=== PATIENT | male | born 1970 | race Caucasian/White ===

== ENCOUNTER 2017-06-13 15:42 | Emergency (ER) | payer OTHER ==
[2017-06-13 16:03] VITALS: BP 114/78; RESP 17; TEMP 98
[2017-06-13] MEDS ORDERED: LEVOFLOXACIN 750 MG TAB PO STA (16:26)
[2017-06-13] MEDS ORDERED: methylPREDNISolone SOD SUCCI 125 MG/2 ML VIAL IM ONE (16:26)
--- NOTE | 2017-06-13 16:32 | ED ---
Skin/Abscess/FB HPI - General Chief complaint: Skin/Abscess/Foreign Body Stated complaint: bee sting/swelling in ankle Time Seen by Provider: 06/13/17 15:58 Source: patient, RN notes reviewed, old records reviewed Mode of arrival: ambulatory Limitations: no limitations - History of Present Illness Initial comments: This is a 47-year-old male presenting to the emergency Department chief complaint of a hornet sting over his right ankle. Patient reports that he is leaving the hospital after getting a CAT scan of the sinuses. He reports that in particular he got stung. He states he went into his car and took one Benadryl. He reports that he's had significant pain and swelling over the ankle. He reports the he discussed this with his and she her chin to contact emergency department. Patient reports that he was recently on steroids but had abnormal reaction to the anxious. Patient reports that he has no numbness or tingling in his toes. Denies any decreased range of motion of the foot or ankle. Patient denies any shortness of breath or swelling of the face or lips. Patient reports that he does have chronic sinusitis and he is supposed to start taking Levaquin. He reports is not able to get to the pharmacy in order to be able to take his medication, it is closed at this hour. Patient denies any recent fever, chills, shortness of breath, chest pain, back pain, abdominal pain, nausea vomiting, numbness or tingling, dysuria or hematuria, constipation or diarrhea, headaches or visual changes, or any other current symptoms - Related Data Previous Rx's Medication Instructions Recorded Hydrocortisone Cream 1 applic TOPICAL QID #1 tube 06/13/17 [Hydrocortisone 1% Cream] Allergies Allergy/AdvReac Type Severity Reaction Status Date / Time codeine Allergy Unknown Verified 06/13/17 15:58 Sulfa (Sulfonamide Allergy Unknown Verified 06/13/17 15:58 Antibiotics) Review of Systems ROS Statement: Those systems with pertinent positive or pertinent negative responses have been documented in the HPI. ROS Other: All systems not noted in ROS Statement are negative. Past Medical History Past Medical History: No Reported History History of Any Multi-Drug Resistant Organisms: None Reported Additional Past Surgical History / Comment(s): club foot Past Psychological History: No Psychological Hx Reported Smoking Status: Never smoker Past Alcohol Use History: Occasional Past Drug Use History: None Reported General Exam - General Exam Comments Initial Comments: This is a 47-year-old male. No acute distress. Limitations: no limitations General appearance: alert, in no apparent distress Head exam: Present: atraumatic, normocephalic, normal inspection Eye exam: Present: normal appearance, PERRL, EOMI. Absent: scleral icterus, conjunctival injection, periorbital swelling ENT exam: Present: normal exam, mucous membranes moist Neck exam: Present: normal inspection. Absent: tenderness, meningismus, lymphadenopathy Respiratory exam: Present: normal lung sounds bilaterally. Absent: respiratory distress, wheezes, rales, rhonchi, stridor Cardiovascular Exam: Present: regular rate, normal rhythm, normal heart sounds. Absent: systolic murmur, diastolic murmur, rubs, gallop, clicks GI/Abdominal exam: Present: soft, normal bowel sounds. Absent: distended, tenderness, guarding, rebound, rigid Extremities exam: Present: normal inspection, full ROM, normal capillary refill. Absent: tenderness, pedal edema, joint swelling, calf tenderness Back exam: Present: normal inspection Neurological exam: Present: alert, oriented X3, CN II-XII intact Psychiatric exam: Present: normal affect, normal mood Skin exam: Present: warm, dry, intact, normal color. Absent: rash Course Vital Signs 06/13/17 15:58 Temperature 98.0 F Pulse Rate 91 Respiratory 17 Rate Blood Pressure 114/78 O2 Sat by Pulse 98 Oximetry Medical Decision Making - Medical Decision Making This is a 47-year-old male presenting to the emergency Department chief complaint of a hornet sting over his right ankle. Patient reports that he is leaving the hospital after getting a CAT scan of the sinuses. He reports that in particular he got stung. He states he went into his car and took one Benadryl. He reports that he's had significant pain and swelling over the ankle. He reports the he discussed this with his and she her chin to contact emergency department. Patient reports that he was recently on steroids but had abnormal reaction to the anxious. Patient reports that he has no numbness or tingling in his toes. Denies any decreased range of motion of the foot or ankle. Patient denies any shortness of breath or swelling of the face or lips. Patient reports that he does have chronic sinusitis and he is supposed to start taking Levaquin. He reports is not able to get to the pharmacy in order to be able to take his medication, it is closed at this hour. Patient does have some mild to moderate swelling over the lateral aspect of the ankle. Patient has full range of motion the toes. Normal sensation and good capillary refill. Patient was given IM Solu-Medrol. Discussed that he needs to take Benadryl when he goes home. Patient was also given an ice pack over the area. Discussed that I can give him 1 dose of his antibiotic today supposed to start tomorrow for sinusitis as he is not able to get to the pharmacy. Patient agrees to treatment plan will comply. Return parameters were discussed. Disposition Clinical Impression: Bee sting reaction, Sinusitis Disposition: HOME SELF-CARE Condition: Good Instructions: Insect Bite or Sting (ED) Additional Instructions: Patient advised to put ice over the area as much as possible. He needs to take Benadryl at home. Patient advised to take Benadryl every 4 hours. Apply a steroid cream over the top of the area as well. Return to the emergency department if any alarming signs or symptoms occur. Prescriptions: Hydrocortisone Cream [Hydrocortisone 1% Cream] 1 applic TOPICAL QID #1 tube Referrals: Gilbert Berry MD [Primary Care Provider] - 1-2 days Time of Disposition: 16:31
[2017-06-13 16:51] VITALS: PULSE 87
== END 2017-06-13 16:50 | disposition home or self-care (01) ==
LOC: EC 15:42
DX: T63.441A Toxic effect of venom of bees, accidental (unintentional), initial encounter (principal); J32.9 Chronic sinusitis, unspecified; Z88.2 Allergy status to sulfonamides; Z88.5 Allergy status to narcotic agent; Y92.239 Unspecified place in hospital as the place of occurrence of the external cause
CPT/HCPCS: 99283; 96372; J2930; 70486

== ENCOUNTER → 2017-06-13 | Outpatient (CLI) | payer OTHER ==
--- NOTE | 2017-06-13 16:01 | CT ---
EXAMINATION TYPE: CT sinus wo con DATE OF EXAM: 06/13/2017 COMPARISON: NONE HISTORY: Sinus pressure and congestion x years. CT DLP: 490.00 mGycm. Automated Exposure Control for Dose Reduction was Utilized. TECHNIQUE: CT scan of the sinuses is performed without contrast, axial images are obtained, coronal r eformatted images are also reviewed. FINDINGS: A small amount mucosal thickening is seen within the frontal sinus. Scant mucosal thickeni ng is seen along the medial wall of the left maxillary sinus. There is no evidence of mucoperiosteal thickening to indicate chronic sinusitis. Septi are and swelling noted within the inferior maxillary sinuses. There is a left middle and inferior nasal turbinate mucosal hypertrophy. No nasal septal dev iation. The ostiomeatal complexes are patent. No Deidre cells are present. No norma bullosa. Frontal recesses are also present. Lamina Propecia are intact. Multiple dental fillings creates spray artifa ct and partially obscured visualization of the oral pharynx. The examination is not optimized for chela luation the brain. Visualized portion of mastoid air cells show no abnormal opacification. The globes are intact bilate rally. IMPRESSION: 1. Scant mucosal thickening along the medial wall of the left maxillary sinus without mucoperiosteal thickening to radiographically indicate chronic sinusitis. 2. Patency of the ostiomeatal complexes bilaterally. No Deidre cells or norma bullosa. 3. Left middle and inferior nasal turbinate hypertrophy. No septal deviation. 4. Scant mild mucosal thickening of the frontal sinus.
== END | disposition home or self-care (01) ==
LOC: RADCTMAIN 14:58
PROVIDERS: ATTEND Otolaryngology Otolaryngic Allergy
DX: J34.89 Other specified disorders of nose and nasal sinuses (principal); J34.3 Hypertrophy of nasal turbinates
CPT/HCPCS: 70486

== ENCOUNTER → 2018-05-01 | Outpatient (CLI) | payer OTHER ==
--- NOTE | 2018-05-02 04:49 | MR ---
EXAMINATION TYPE: MR cspine/lspine wo con DATE OF EXAM: 05/01/2018 COMPARISON: NONE HISTORY: TECHNIQUE: Multiplanar, multisequence imaging of the lumbar and cervical spine is performed without I V contrast. FINDINGS: . Cervical spine The vertebra have normal alignment. Disc spaces are fairly normal. Cervical spinal cord has normal si gnal pattern. There is no evidence of edema. Brainstem appears intact. I see no bony destructive proc ess. There is no cervical paraspinal mass. Posterior elements appear intact. There is small posterior disc herniation at C5-6 without significant impingement on the spinal canal. IMPRESSION: Small posterior disc herniation at C5-6. Otherwise negative exam. Lumbar spine. The lumbar vertebra have normal alignment. There is no compression fracture. There is mild degenerati ve disc changes throughout the lumbar spine. There are small posterior disc bulging at L1-2 L4-5 and L5-S1 without compromise of the spinal canal. Lumbar nerve roots appear normal. The neuroforamina are fairly well-maintained. There is no bony destructive process. There is no lumbar paraspinal mass. Th ere is no lumbar spinal stenosis. IMPRESSION: Mild multilevel spondylosis. Small posterior disc herniations without impingement on the neural eleme nts. No spinal stenosis.
== END | disposition home or self-care (01) ==
LOC: RADMRIMAIN 19:42
PROVIDERS: ATTEND Psychiatry & Neurology Neurology
DX: M51.16 Intervertebral disc disorders with radiculopathy, lumbar region (principal); M47.26 Other spondylosis with radiculopathy, lumbar region; M50.222 Other cervical disc displacement at C5-C6 level; R29.2 Abnormal reflex; R29.818 Other symptoms and signs involving the nervous system; R20.2 Paresthesia of skin; Z82.0 Family history of epilepsy and other diseases of the nervous system
CPT/HCPCS: 72141; 72148

== ENCOUNTER → 2018-05-04 | Outpatient (CLI) | payer OTHER ==
--- NOTE | 2018-05-04 23:07 | MR ---
EXAMINATION TYPE: MR thoracic spine wo/w con DATE OF EXAM: 05/04/2018 COMPARISON: NONE HISTORY: Tspine pain CONTRAST: Standard multiplanar, multisequence MRI departmental protocol utilizing 7.5 mL intravenous Gadavist g adolinium contrast. FINDINGS: Thoracic vertebra have normal alignment. There is mild narrowing of thoracic disc spaces. T here is very subtle loss of height of multiple thoracic vertebra. There is no thoracic paraspinal mas s. There is no thoracic spinal stenosis. Thoracic spinal cord has normal signal pattern without evide nce of edema. There is no pathologic enhancement. I see no focal bone destruction. There is mild spurring of the endplates. There is mild multilevel spur formation without significant encroachment on the spinal canal. There is small posterior disc herniation at T5-6 without significan t impingement on the spinal cord. This is slightly towards the left side. IMPRESSION: Mild spondylotic changes. Small posterior disc bulging without significant encroachment on the spinal canal. Subtle loss of height could relate to osteomalacia.
== END | disposition home or self-care (01) ==
LOC: RADMRIMAIN 20:42
PROVIDERS: ATTEND Psychiatry & Neurology Neurology
DX: M51.24 Other intervertebral disc displacement, thoracic region (principal); M47.24 Other spondylosis with radiculopathy, thoracic region; M54.17 Radiculopathy, lumbosacral region
CPT/HCPCS: 72157; A9581

== ENCOUNTER → 2018-05-06 | Outpatient (CLI) | payer OTHER ==
--- NOTE | 2018-05-06 23:10 | MR ---
EXAMINATION TYPE: MR brain wo/w con DATE OF EXAM: 05/06/2018 COMPARISON: NONE HISTORY: Neurological deficit present (R29.818). Family history of ALS with hyperreflexia TECHNIQUE: Multiplanar, multisequence imaging of the brain and brainstem is performed without IV cont rast. FINDINGS: Diffusion weighted images demonstrate no evidence of a recent infarct or other diffusion abnormality. There is no extraaxial fluid collection or significant white matter signal abnormality. The ventricu lar system and cisternal spaces are normal in size and appearance. The brain volume is age appropria te. Midline structures demonstrate normal morphology. The craniocervical junction appears within normal limits. Normal vascular flow voids are present. The visualized sinuses are clear and the globes are i ntact. IMPRESSION: No suspicious findings identified.
== END | disposition home or self-care (01) ==
LOC: RADMRIMAIN 13:13
PROVIDERS: ATTEND Psychiatry & Neurology Neurology
DX: R29.818 Other symptoms and signs involving the nervous system (principal)
CPT/HCPCS: 70553; A9581

== ENCOUNTER 2018-05-30 06:53 | Emergency (ER) | payer OTHER ==
[2018-05-30] MEDS ORDERED: SODIUM CHLORIDE 0.9% 1,000 ML IV STA (07:25)
[2018-05-30] MEDS ORDERED: KETOROLAC 30 MG/ML 1 ML VIAL IVP STA (07:26)
--- NOTE | 2018-05-30 07:29 | ED ---
General Adult HPI - General Chief complaint: Extremity Injury, Lower Stated complaint: leg pain Source: patient Mode of arrival: ambulatory Limitations: no limitations - History of Present Illness Initial comments: Dictation was produced using [employer] dictation software. please excuse any grammatical, word or spelling errors. Chief Complaint: 47-year-old male past medical history of left lower extremity clubfoot presents with right gluteal pain with radiation to the right lateral foot. History of Present Illness: Patient is a 47-year-old male with past medical history of left lower extremity clubfoot presents with right gluteal pain with radiation to the right lateral foot. 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 He will go this morning with pain over his right gluteus area. He reports that the pain radiates down to his right lateral foot. Patient denies any back pain. Patient has a history of left- sided clubfoot. He reports that he's been casted and has normal atrophy of the left lower extremity muscles. Patient states he recently had MRI of his lower back, does not know results. Patient denies any weakness. Pain is exacerbated with flexion of the hip The ROS documented in this emergency department record has been reviewed and confirmed by me. Those systems with pertinent positive or negative responses have been documented in the HPI. All other systems are other negative and/or noncontributory. - Related Data Previous Rx's Medication Instructions Recorded Baclofen 10 mg PO TID PRN #20 tab 05/30/18 Dexamethasone 12 mg PO ONCE #3 tablet 05/30/18 Allergies Allergy/AdvReac Type Severity Reaction Status Date / Time codeine Allergy Unknown Verified 06/13/17 15:58 latex Allergy Rash/Hives Verified 05/30/18 07:06 Sulfa (Sulfonamide Allergy Unknown Verified 06/13/17 15:58 Antibiotics) Review of Systems ROS Statement: Those systems with pertinent positive or pertinent negative responses have been documented in the HPI. ROS Other: All systems not noted in ROS Statement are negative. Past Medical History Past Medical History: No Reported History History of Any Multi-Drug Resistant Organisms: None Reported Additional Past Surgical History / Comment(s): club foot Past Psychological History: No Psychological Hx Reported Smoking Status: Never smoker Past Alcohol Use History: Occasional Past Drug Use History: None Reported General Exam - General Exam Comments Initial Comments: PHYSICAL EXAM: General Impression: Alert and oriented x3, not in acute distress HEENT: Normocephalic atraumatic, extra-ocular movements intact, pupils equal and reactive to light bilaterally, mucous membranes moist. Cardiovascular: Heart regular rate and rhythm, S1&S2 audible, no murmurs, rubs or gallops Chest: Lungs clear to auscultation bilaterally, no rhonchi, no wheeze, no rales Abdomen: Bowel sounds present, abdomen soft, non-tender, non-distended, no organomegaly Musculoskeletal: Pulses present and equal in all extremities, no peripheral edema, tenderness to palpation over the right piriformis. Motor: Power 5/5 bilaterally, no focal deficits noted Neurological: CN II-XII grossly intact, no focal motor or sensory deficits noted Skin: Intact with no visualized rashes Psych: Normal affect and mood Limitations: no limitations Course Vital Signs 05/30/18 07:02 Temperature 97.7 F Pulse Rate 77 Respiratory 18 Rate Blood Pressure 124/79 O2 Sat by Pulse 97 Oximetry Medical Decision Making - Medical Decision Making ED course: 47-year-old male presents with clinical presentation consistent with sciatica. Vital signs upon arrival are within acceptable limits. Please reproducible with palpation over the right piriformis muscle. Patient given intravenous fluids, analgesics. Metabolic panel was obtained to look for electrolyte abnormalities. Metabolic panel is within normal limits. Patient reevaluated and states that he has mild improvement of symptoms however still persistent. Coca presentation is consistent with sciatica stemming from the piriformis muscle. Patient denies any back pain to suggest sciatica originating from the lower spine. Patient was mildly concerned that his symptoms were from blood clot however symptoms are of the lateral lower leg. Patient denies any Pain, popliteal pain or pain to the medial thigh over the deep venous system. Consultation on what symptoms are suggestive of deep venous thrombosis. Patient educated on early mobility and flexibility are most helpful in improving his symptoms. Patient is told that he is high risk for right lower extremity and hip issues given that his history of clubfoot and weak left lower extremity. Still to follow-up with his mandrel puller for Hospital reevaluation of she left. Patient given 1 dose of corticosteroids. He is given prescription for baclofen when necessary pain. Patient advised to follow- up with primary care physician. He is understandable and agreeable to this plan. - Lab Data Result diagrams: 05/30/18 08:05 Lab Results 05/30/18 Range/Units 08:05 Sodium 139 (137-145) mmol/L Potassium 4.7 (3.5-5.1) mmol/L Chloride 105 (98-107) mmol/L Carbon Dioxide 27 (22-30) mmol/L Anion Gap 7 mmol/L BUN 22 H (9-20) mg/dL Creatinine 1.04 (0.66-1.25) mg/dL Est GFR (CKD-EPI)AfAm >90 (>60 ml/min/1.73 sqM) Est GFR (CKD-EPI)NonAf 87 (>60 ml/min/1.73 sqM) Glucose 105 H (74-99) mg/dL Calcium 9.3 (8.4-10.2) mg/dL Disposition Clinical Impression: Sciatica Disposition: HOME SELF-CARE Condition: Fair Instructions: Sciatica (ED) Prescriptions: Baclofen 10 mg PO TID PRN #20 tab PRN Reason: Pain Dexamethasone 12 mg PO ONCE #3 tablet Is patient prescribed a controlled substance at d/c from ED?: No Referrals: Gilbert Berry MD [Primary Care Provider] - 1-2 days Time of Disposition: 09:14
[2018-05-30 08:36] LABS: Anion Gap 7 mmol/L; Blood Urea Nitrogen 22 mg/dL (9-20); Calcium 9.3 mg/dL (8.4-10.2); Carbon Dioxide 27 mmol/L (22-30); Chloride 105 mmol/L (98-107); Glucose 105 mg/dL (74-99); Potassium 4.7 mmol/L (3.5-5.1); Sodium 139 mmol/L (137-145)
[2018-05-30] MEDS ORDERED: DEXAMETHASONE SOD PHOSPHATE 10 MG/ML 1 ML VIAL IV STA (08:51)
[2018-05-30] MEDS ORDERED: BACLOFEN 10 MG TAB PO STA (08:52)
[2018-05-30 09:59] VITALS: BP 128/70; PULSE 78; RESP 16; TEMP 97.8
== END 2018-05-30 09:58 | disposition home or self-care (01) ==
LOC: EC 06:53
DX: M54.30 Sciatica, unspecified side (principal); Z88.5 Allergy status to narcotic agent; Z88.2 Allergy status to sulfonamides; Z91.040 Latex allergy status
CPT/HCPCS: 36415; 80048; 99283; 96374; 96375; 96361; J1100; J1885

== ENCOUNTER → 2018-12-04 | Outpatient (CLI) | payer OTHER ==
--- NOTE | 2018-12-04 15:16 | XR ---
EXAMINATION TYPE: XR chest 2V DATE OF EXAM: 12/04/2018 COMPARISON: Prior chest x-ray 12/28/2008 HISTORY: Cough TECHNIQUE: Frontal and lateral views of the chest are obtained. FINDINGS: Azygos lobe is noted incidentally. There is no focal air space opacity, pleural effusion, o r pneumothorax seen. The cardiac silhouette size is within normal limits. The aorta is dense. There is a spinal curvature. Postop change noted to the distal left clavicle. Substernal bandlike areas of increased attenuation likely represents scar, are stable. The osseous structures are intact. IMPRESSION: No acute cardiopulmonary process.
== END | disposition home or self-care (01) ==
LOC: RADXRMAIN 09:57
PROVIDERS: ATTEND Nurse Practitioner Family
DX: R07.89 Other chest pain (principal); R05 Cough
CPT/HCPCS: 71046

== ENCOUNTER → 2019-06-21 | Outpatient (CLI) | payer OTHER ==
--- NOTE | 2019-06-21 15:15 | XR ---
EXAMINATION TYPE: XR chest 2V DATE OF EXAM: 06/21/2019 COMPARISON: 12/04/2018 HISTORY: Nodule on the sternum for 2 years. TECHNIQUE: Frontal and lateral views of the chest are obtained. FINDINGS: Redemonstration of azygos lobe. There is no focal air space opacity, pleural effusion, or pneumothorax seen. The cardiac silhouette size is within normal limits. Postoperative changes are se en in the distal left clavicle. Degenerative changes are seen throughout the thoracic spine. Evaluati on of the sternum is limited on chest x-ray, but no gross abnormality is identified. IMPRESSION: No acute intrathoracic process. No gross abnormality of the sternum, but limited on chest x-ray. If further evaluation is required, x -ray sternum or CT of the chest without contrast may be obtained.
== END | disposition home or self-care (01) ==
LOC: RADXRMAIN 14:26
PROVIDERS: ATTEND Internal Medicine
DX: R22.2 Localized swelling, mass and lump, trunk (principal)
CPT/HCPCS: 71046